=== PATIENT | female | born 1990 | race Caucasian/White ===

== ENCOUNTER 2018-01-22 11:57 | Emergency (ER) | payer OTHER ==
[2018-01-22 12:04] VITALS: TEMP 97.8; BMI 22.8
--- NOTE | 2018-01-22 12:24 | PDOC ---
History of Present Illness - General Chief Complaint: Diarrhea Stated Complaint: DIARRHEA, ABD PAIN Time Seen by Provider: 01/22/18 12:06 - History of Present Illness Initial Comments: 01/22/18 12:22 Pt is a 27 y/o lady with no significant past medical history who presents to [facility] c/o left sided abdominal pain and diarrhea that has been present for 1 week. Pain is intermittent, 8/10 in severity when present, sharp in nature, and non-radiating. Pt endorses using OTC remedies including imodium, tums, and pepto -bismol which have not assuaged her symptoms. Pt has been experiencing chills but denies any fever. Denies chest pain or shortness of breath. FH- Noncontributory NKDA Social Hx- No Tobacco or Alcohol use. No recreational drug use. Sexual Hx- Sexually active, uses protection. Endorses having IUD. Past History - Past Medical History Allergies/Adverse Reactions: Allergies Allergy/AdvReac Type Severity Reaction Status Date / Time No Known Allergies Allergy Verified 01/22/18 12:04 Home Medications: Ambulatory Orders Sulfamethoxazole/Trimethoprim [Bactrim Ds Tablet] 1 each PO BID #6 tablet Asthma: No Cancer: No Cardiac Disorders: No COPD: No Diabetes: No HTN: No Seizures: No Thyroid Disease: No - Immunization History Immunization Up to Date: Yes - Suicide/Smoking/Psychosocial Hx Smoking Status: No Smoking History: Never smoked Have you smoked in the past 12 months: No Number of Cigarettes Smoked Daily: 0 Hx Alcohol Use: No Drug/Substance Use Hx: No Substance Use Type: None Hx Substance Use Treatment: No Review of Systems - Review of Systems Able to Perform ROS?: Yes Is the patient limited Bangladeshi proficient: No Constitutional: Yes: Chills, Malaise Respiratory: No: Symptoms reported, See HPI, Cough, Orthopnea, Shortness of Breath, SOB with Exertion, SOB at Rest, Stridor, Wheezing, Productive cough, Hemoptysis, Other ABD/GI: Yes: Diarrhea, Abdominal cramping *Physical Exam - Vital Signs Last Vital Signs Temp Pulse Resp BP Pulse Ox 97.8 F 82 18 111/74 99 01/22/18 12:01 01/22/18 12:01 01/22/18 12:01 01/22/18 12:01 01/22/18 12:01 - Physical Exam Comments: 01/22/18 12:30 GEN- AAOx3 RS- CTA B/L CVS- RRR no MRG S1 S2 ABD- Tenderness LLQ, no guarding or rigidity. EXT- No [facility]CE ED Treatment Course - LABORATORY CBC & Chemistry Diagram: 01/22/18 12:52 01/22/18 12:59 Medical Decision Making - Medical Decision Making 01/22/18 12:49 CBC w/ Diff, CMP, Urine HCG, Lipase pending. 01/22/18 13:[address] Abd/Pelvis w/ IV Contrast pending Lab results DDX- Gastroenteritis, Diverticulitis, UTI, ruptured ovarian cyst, 01/22/18 16:04 Ct AP Negative Pt d/c home with Bactrim for UTI. Leuk Esterase 3+. *DC/Admit/Observation/Transfer Diagnosis at time of Disposition: UTI (urinary tract infection) - Discharge Dispostion Disposition: HOME Condition at time of disposition: Stable - Prescriptions Prescriptions: Sulfamethoxazole/Trimethoprim [Bactrim Ds Tablet] 1 each PO BID #6 tablet - Referrals Referrals: [facility] [place] [facility] [place] [Provider Group] - Patient Instructions Printed Discharge Instructions: DI for Urinary Tract Infection (UTI) Additional Instructions: Follow-up with your primary care doctor within 1 week. Return to the emergency department if you have any new, worsening or concerning symptoms. - Post Discharge Activity
[2018-01-22] MEDS ORDERED: SODIUM CHLORIDE 1,000 ML IV SCH (12:30)
--- NOTE | 2018-01-22 12:48 | PDOC ---
Attending Attestation - Resident Resident Name: Haider Cantor - ED Attending Attestation I have performed the following: I have examined & evaluated the patient, The case was reviewed & discussed with the resident, I agree w/resident's findings & plan, Exceptions are as noted - HPI HPI: 01/22/18 13:41 The patient is a 27 year old female with no significant past medical history who presents to the ER with left sided abdominal pain and diarrhea for the past week. Patient describes the pain as intermittent, 8/10 in severity, sharp, with no exacerbating or alleviating factors. Reports 6-7 episodes of non bloody watery diarrhea over the past 2 days. Patient reports no relief with Tums or imodium. Patient states she has an IUD in place and is sexually active. The patient endorses chills but denies fever, nausea, vomit, vaginal discharge, and constipation. Denies dysuria, frequency, urgency, and hematuria. Allergies: NKA Past surgical history: None reported. Social history: No reported alcohol, drug, or cigarette use. - Physicial Exam PE: 01/22/18 13:43 GENERAL: Awake, alert, and fully oriented, in no acute distress HEAD: No signs of trauma ENT: Moist mucosa LUNGS: Breath sounds equal, clear to auscultation bilaterally. No wheezes, and no crackles HEART: Regular rate and rhythm, normal S1 and S2, no murmurs, rubs or gallops ABDOMEN: Soft, +LUQ and L mid abd ttp. NO LLQ ttp. No guarding, no rebound. No masses. No CVAT EXTREMITIES: Normal range of motion, no edema. No cords, erythema, or tenderness BACK: No midline spinal tenderness in cervical/thoracic/lumbar region NEUROLOGICAL: Normal speech, cranial nerves intact, negative pronator drift, 5/ 5 strength in all 4 extremities, normal sensation to light touch in all 4 extremities SKIN: Warm, Dry, normal turgor, no rashes or lesions noted." - Medical Decision Making 01/22/18 13:45 27yo F presents to the ED with L sided abd pain and diarrhea for 7 days. Vitals wnl. Exam with L mid and LUQ ttp. DDx includes but not limited to colitis vs gastroenteritis vs gastritis vs UTI vs diverticulitis. Plan: -labs -UPT -CTAP -UA -pain control -reassess 01/22/18 15:36 Work up remarkable for UTI CTAP neg Will tx with bactrim pt well appearing, requests DC I discussed the physical exam findings, ancillary test results and final diagnoses with the patient. I answered all of the patient's questions. The patient was satisfied with the care received and felt comfortable with the discharge plan and treatment plan. The patient will call their primary care physician within 24 hours to arrange follow-up and will return to the Emergency Department with any new, persistent or worsening symptoms. Discharge Disposition - Diagnosis UTI (urinary tract infection) - Discharge Dispostion Disposition: HOME Condition at time of disposition: Stable Last Admission D/C Date: 11/22/14 Decision to Admit order: No - Prescriptions Prescriptions: Sulfamethoxazole/Trimethoprim [Bactrim Ds Tablet] 1 each PO BID #6 tablet - Referrals - Patient Instructions Printed Discharge Instructions: DI for Urinary Tract Infection (UTI) Additional Instructions: Follow-up with your primary care doctor within 1 week. Return to the emergency department if you have any new, worsening or concerning symptoms. - Post Discharge Activity
[2018-01-22 13:06] LABS: BASO % 1.2 % (0-2.0); EOS % 1.2 % (0-4.5); HEMATOCRIT 39.6 % (32.4-45.2); HEMOGLOBIN 12.9 GM/dL (10.7-15.3); LYMPH % 21.2 % (8-40); MCH 27.2 pg (25.7-33.7); MCHC 32.6 g/dl (32.0-36.0); MEAN CELL VOLUME 83.7 fl (80-96); MEAN PLT VOLUME 7.4 fl (7.5-11.1); MONO % 8.3 % (3.8-10.2); NEUT % 68.1 % (42.8-82.8); PLATELET COUNT 293 K/MM3 (134-434); RBC 4.73 M/mm3 (3.60-5.2); RDW 14.1 % (11.6-15.6); WHITE BLOOD COUNT 5.6 K/mm3 (4.0-10.0)
[2018-01-22 13:09] LABS: URINE APPEARANCE SLCLOUDY; URINE BILIRUBIN NEGATIVE (<2.0 mg/dL); URINE COLOR LTYELLOW; URINE GLUCOSE (UA) NEGATIVE (NEGATIVE); URINE KETONE NEGATIVE (NEGATIVE); URINE NITRITE NEGATIVE (NEGATIVE); URINE PROTEIN NEGATIVE (NEGATIVE); URINE UROBILINOGEN NEGATIVE mg/dL (0.2-1.0)
[2018-01-22 13:18] LABS: URINE LEUK ESTERASE 3+ (NEGATIVE)
[2018-01-22 13:19] LABS: EPI CELLS RARE /HPF (FEW); URINE MUCUS RARE
[2018-01-22 13:37] LABS: ALBUMIN 3.8 g/dl (3.4-5.0); ANION GAP 6 MMOL/L (8-16); BLOOD UREA NITROGEN 9 mg/dL (7-18); CALCIUM 8.5 mg/dL (8.5-10.1); CHLORIDE 103 mmol/L (98-107); CO2 29 mmol/L (21-32); CREATININE 0.6 mg/dL (0.55-1.3); GLUCOSE,RANDOM 97 mg/dL (74-106); LIPASE 157 U/L (73-393); POTASSIUM 4.4 mmol/L (3.5-5.1); SGOT/AST 21 U/L (15-37); SGPT/ALT 25 U/L (13-61); SODIUM 138 mmol/L (136-145)
[2018-01-22 13:41] LABS: ALK PHOS 86 U/L (45-117); BILIRUBIN,TOTAL 0.4 mg/dL (0.2-1.0); TOT PROT 7.4 g/dl (6.4-8.2)
[2018-01-22] MEDS ORDERED: ACETAMINOPHEN 1000 MG/100 ML VIAL (NON FORMULARY) IVPB ONE (13:46)
[2018-01-22] MEDS ORDERED: ACETAMINOPHEN INJECTION 100 ML IVPB ONE (13:49)
[2018-01-22 15:50] VITALS: BP 125/64; PULSE 60
== END 2018-01-22 15:52 | disposition home or self-care (01) ==
LOC: JER 11:57
PROC: 3E033NZ Introduction of Analgesics, Hypnotics, Sedatives into Peripheral Vein, Percutaneous Approach (ICD-10-PCS; principal; 2018-01-22)
DX: N39.0 Urinary tract infection, site not specified (principal)
CPT/HCPCS: 36415; 74177-TC; 80053; 81003; 81015; 83690; 84702; 84703; 85025; 96374; 99283-25; J0131; J7030

== ENCOUNTER 2018-03-10 08:10 | Day surgery (SDC) | payer OTHER ==
[2018-03-09 11:41] VITALS: BMI 22.1
[2018-03-10 08:56] LABS: BASO % 0.9 % (0-2.0); EOS % 0.8 % (0-4.5); HEMATOCRIT 38.5 % (32.4-45.2); HEMOGLOBIN 12.2 GM/dL (10.7-15.3); LYMPH % 12.3 % (8-40); MCH 26.8 pg (25.7-33.7); MCHC 31.6 g/dl (32.0-36.0); MEAN CELL VOLUME 84.9 fl (80-96); MEAN PLT VOLUME 8.1 fl (7.5-11.1); PLATELET COUNT 230 K/MM3 (134-434); RBC 4.53 M/mm3 (3.60-5.2); RDW 13.8 % (11.6-15.6); WHITE BLOOD COUNT 7.2 K/mm3 (4.0-10.0)
[2018-03-10] MEDS ORDERED: BUPIVACAINE HCL/PF 0.5% (5MG/ML) 10 ML VIAL ONE (09:12)
[2018-03-10] MEDS ORDERED: LIDOCAINE HCL 1%, 10 MG/ML (20ML VIAL) ONE (09:12)
[2018-03-10 09:22] LABS: ALBUMIN 3.7 g/dl (3.4-5.0); ALK PHOS 62 U/L (45-117); ANION GAP 6 MMOL/L (8-16); BILIRUBIN,TOTAL 0.4 mg/dL (0.2-1); BLOOD UREA NITROGEN 10 mg/dL (7-18); CALCIUM 8.6 mg/dL (8.5-10.1); CHLORIDE 105 mmol/L (98-107); CO2 28 mmol/L (21-32); CREATININE 0.6 mg/dL (0.55-1.3); GLUCOSE,RANDOM 86 mg/dL (74-106); POTASSIUM 4.4 mmol/L (3.5-5.1); SGOT/AST 12 U/L (15-37); SGPT/ALT 16 U/L (13-61); SODIUM 139 mmol/L (136-145); TOT PROT 6.7 g/dl (6.4-8.2)
[2018-03-10 09:36] VITALS: BP 113/63; PULSE 63; TEMP 99
[2018-03-10] MEDS ORDERED: LIDOCAINE 1%/EPI 1:100000 (20 ML MULTI DOSE VIAL) ONE (10:17)
--- NOTE | 2018-03-10 10:40 | EKG ---
Test Reason : Blood Pressure : / mmHG Vent. Rate : 067 BPM Atrial Rate : 067 BPM P-R Int : 120 ms QRS Dur : 082 ms QT Int : 394 ms P-R-T Axes : 061 033 047 degrees QTc Int : 416 ms NORMAL SINUS RHYTHM NORMAL ECG NO PREVIOUS ECGS AVAILABLE Confirmed by NAT MACIEL MD ([id number]) on 03/10/2018 10:40:25 AM Referred By: Deonte Figueroa Confirmed By:NAT MACIEL MD
== END 2018-03-10 10:16 | disposition home or self-care (01) ==
LOC: JASU-SURG 08:10
PROVIDERS: ATTEND Podiatrist Foot Surgery
PROC: 3E013GC Introduction of Other Therapeutic Substance into Subcutaneous Tissue, Percutaneous Approach (ICD-10-PCS; principal; 2018-03-10)
DX: Z53.8 Procedure and treatment not carried out for other reasons (principal)
CPT/HCPCS: 36415; 71046-TC-FY; 80053; 84702; 85025; 93005; 93010